=== PATIENT | male | born 1980 | race Caucasian/White ===

== ENCOUNTER 2019-01-06 13:40 | Emergency (ER) | payer BC ==
[2019-01-06] MEDS ORDERED: TETRACAINE HCL 0.5% 4ML OPTH ONE (14:09)
[2019-01-06] MEDS ORDERED: FLUORESCEIN SODIUM 1 MG/WRAP ONE (14:09)
--- NOTE | 2019-01-06 14:49 | ER ---
Nurse's Notes [facility] Name: Sandro Zhang Age: 38 yrs Sex: Male : 1980 Arrival Date: 01/06/2019 Time: 13:43 Bed 14 Private MD: Unknown, Unknown Diagnosis: Conjunctivitis-left eye Presentation: 01/06 13:55 Presenting complaint: Patient states: "I have had an eye infection for like a week and ss a half now, and the eye doctor put me on antibiotics, but it's not getting better, and now my vision is blurry since today.". Transition of care: patient was not received from another setting of care. Onset of symptoms was December 27, 2018. Risk Assessment: Do you want to hurt yourself or someone else? Patient reports no desire to harm self or others. Initial Sepsis Screen: Does the patient meet any 2 criteria? No. Patient's initial sepsis screen is negative. Does the patient have a suspected source of infection? No. Patient's initial sepsis screen is negative. Care prior to arrival: None. 13:55 Method Of Arrival: Ambulatory ss 13:55 Acuity: JACQUI 4 ss Triage Assessment: 13:55 Pain: Complains of pain in left eye Pain currently is 6 out of 10 on a pain scale. rb1 14:50 Pain: Complains of pain in left eye Pain began 5 days ago. mg2 Historical: - Allergies: 13:56 No Known Allergies; ss - PSHx: 13:56 None; ss - Immunization history:: Adult Immunizations up to date. - Social history:: Smoking status: Patient/guardian denies using tobacco. - Ebola Screening: : Patient denies exposure to infectious person Patient denies travel to an Ebola-affected area in the 21 days before illness onset. Screenin:55 Abuse screen: Denies threats or abuse. Nutritional screening: No deficits noted. rb1 Tuberculosis screening: No symptoms or risk factors identified. Fall Risk None identified. Assessment: 13:55 General: Appears in no apparent distress. comfortable, Behavior is calm, cooperative. rb1 General: Pt. reports being treated for an eye infection but says that it is not getting any better.. Neuro: Level of Consciousness is awake, alert, obeys commands, Oriented to person, place, time, situation. Cardiovascular: Capillary refill < 3 seconds is brisk in bilateral fingers. Respiratory: Airway is patent Respiratory effort is even, unlabored, Respiratory pattern is regular, symmetrical. GI: No signs and/or symptoms were reported involving the gastrointestinal system. : No signs and/or symptoms were reported regarding the genitourinary system. EENT: Reports blurred vision. Derm: Skin is pink, warm \\T\\ dry. 14:52 Reassessment: Patient appears in no apparent distress at this time. Patient and/or rb1 family updated on plan of care and expected duration. Pain level reassessed. Patient is alert, oriented x 3, equal unlabored respirations, skin warm/dry/pink. After the drops were administered. Patient states symptoms have improved. Vital Signs: 13:56 BP 137 / 98; Pulse 87; Resp 16; Temp 97.5(TE); Pulse Ox 99% on R/A; Weight 95.25 kg; ss Height 5 ft. 11 in. (180.34 cm); Pain 6/10; 14:51 BP 131 / 81; Pulse 72; Resp 17; Pulse Ox 97% on R/A; rb1 13:56 Body Mass Index 29.29 (95.25 kg, 180.34 cm) ss Visual Acuity: 14:21 Left Eye Visual acuity 20/50, Pupil size 2 mm, Normal, React To Light, Reactive To mg2 Accomodation; Right Eye Visual acuity 20/30, Pupil size 2 mm, Normal, React To Light, Reactive To Accomodation; Without Lenses; ED Course: 13:43 Patient arrived in ED. ag5 13:43 Unknown, Unknown is Private Physician. ag5 13:52 [facility]. cp 13:52 José Menchaca MD is Attending Physician. cp 13:55 Patient has correct armband on for positive identification. Bed in low position. Call rb1 light in reach. Side rails up X 1. Pulse ox on. NIBP on. 13:56 Triage completed. ss 13:56 Arm band placed on right wrist. ss 14:33 Kimi Stewart, CHANEL is Primary Nurse. rb1 14:47 Joel Segura MD is Referral Physician. cp 14:49 Assist provider with eye exam. Patient did not have IV access during this emergency mg2 room visit. Administered Medications: 14:20 Drug: Tetracaine Drops 0.5 % 1 drops Route: Ophthalmic; Site: left eye; mg2 14:50 Follow up: Response: No adverse reaction mg2 Outcome: 14:48 Discharge ordered by . ayana 15:00 Discharged to home ambulatory. rb1 15:00 Condition: stable 15:00 Discharge instructions given to patient, Instructed on discharge instructions, follow up and referral plans. medication usage, Demonstrated understanding of instructions, follow-up care, medications, Prescriptions given X 1. 15:01 Patient left the ED. rb1 Signatures: Keke Wells RN RN ss Jean Velasquez, SUAD PA Kimi Whatley, RN RN rb1 Jarrod Lee RN RN mg2 Stevie Murray ag5
--- NOTE | 2019-01-06 14:49 | EDPHYS ---
Physician Documentation [facility] Name: Sandro Zhang Age: 38 yrs Sex: Male : 1980 Arrival Date: 01/06/2019 Time: 13:43 Bed 14 Private MD: Unknown, Unknown ED Physician José Menchaca HPI: 01/06 14:00 This 38 yrs old Male presents to ER via Ambulatory with complaints of Eye Problem. cp 14:00 The patient is experiencing matting or discharge, redness, to the left eye, caused by cp an unknown mechanism. 14:00 Onset: The symptoms/episode began/occurred 1 week(s) ago. Duration: the symptoms are cp continuous. Associated signs and symptoms: Pertinent negatives: ear ache, fever, headache, sinus pressure/congestion. Patient wears glasses. Patient reports he saw primary physician 5 days ago and was prescribed gentamycin eye drops and oral antibiotic. Redness has worsened. Historical: - Allergies: 13:56 No Known Allergies; ss - PSHx: 13:56 None; ss - Immunization history:: Adult Immunizations up to date. - Social history:: Smoking status: Patient/guardian denies using tobacco. - Ebola Screening: : Patient denies exposure to infectious person Patient denies travel to an Ebola-affected area in the 21 days before illness onset. ROS: 14:05 Eyes: Positive for blurry vision, discharge, redness, Negative for vision loss. cp 14:05 Constitutional: Negative for body aches, chills, fever. cp 14:05 ENT: Negative for drainage from ear(s), ear pain, sore throat, difficulty swallowing, difficulty handling secretions. 14:05 Skin: Negative for cellulitis, rash. 14:05 All other systems are negative. Exam: 14:30 Visual Acuity: I have reviewed the nursing documentation. cp 14:30 Head/Face: Normocephalic, atraumatic. cp 14:30 Constitutional: The patient appears in no acute distress, alert, awake, non-toxic, well developed, well nourished. 14:30 Eyes: Periorbital structures: appear normal, Pupils: equal, round, and reactive to light and accomodation, Extraocular movements: intact throughout, Conjunctiva: chemosis, that is mild, in left eye, injected, in the left eye, Corneas: abrasion, is not appreciated, foreign body, is not appreciated, a fluorescein strip employed to appreciate the findings, Anterior chamber: normal, no hyphema, Lids and lashes: appear normal, bilaterally, Visual maurice: are intact, Examination of the other eye reveals no obvious gross abnormality. 14:30 ENT: External ear(s): are unremarkable, Ear canal(s): are normal, clear, TM's: dullness, bilaterally, Nose: is normal, Mouth: is normal, Posterior pharynx: is normal, airway is patent, no erythema, no exudate. 14:30 Neck: Lymph nodes: no appreciated lymphadenopathy. 14:30 Skin: cellulitis, is not appreciated, no rash present. Vital Signs: 13:56 BP 137 / 98; Pulse 87; Resp 16; Temp 97.5(TE); Pulse Ox 99% on R/A; Weight 95.25 kg; ss Height 5 ft. 11 in. (180.34 cm); Pain 6/10; 14:51 BP 131 / 81; Pulse 72; Resp 17; Pulse Ox 97% on R/A; rb1 13:56 Body Mass Index 29.29 (95.25 kg, 180.34 cm) ss Visual Acuity: 14:21 Left Eye Visual acuity 20/50, Pupil size 2 mm, Normal, React To Light, Reactive To mg2 Accomodation; Right Eye Visual acuity 20/30, Pupil size 2 mm, Normal, React To Light, Reactive To Accomodation; Without Lenses; MDM: 13:56 Patient medically screened. cp 14:30 Differential diagnosis: Corneal abrasion of Corneal ulcer of Foreign body in Acute cp iritis of Ultraviolet keratitis in. 14:47 Data reviewed: vital signs, nurses notes, I have discussed the patient's cp presentation/case with the attending Emergency Department Physician; and as a result, I will discharge patient. 14:47 Counseling: I had a detailed discussion with the patient and/or guardian regarding: the cp historical points, exam findings, and any diagnostic results supporting the discharge/admit diagnosis, to return to the emergency department if symptoms worsen or persist or if there are any questions or concerns that arise at home. 14:47 Response to treatment: the patient's symptoms have mildly improved after treatment, and cp as a result, I will discharge patient. 01/06 14:01 Order name: Visual Acuity; Complete Time: 14:20 cp 01/06 14:01 Order name: Eye Tray; Complete Time: 14:20 cp 01/06 14:01 Order name: Fluoresene Opth strip; Complete Time: 14:21 cp Administered Medications: 14:20 Drug: Tetracaine Drops 0.5 % 1 drops Route: Ophthalmic; Site: left eye; mg2 14:50 Follow up: Response: No adverse reaction mg2 Disposition: 15:05 Chart complete. cp 15:39 Co-signature as Attending Physician, José Menchaca MD. Disposition: 01/06/19 14:48 Discharged to Home. Impression: Conjunctivitis - left eye. - Condition is Stable. - Discharge Instructions: Bacterial Conjunctivitis. - Prescriptions for Ocuflox 0.3 % Ophthalmic Drops - instill 2 drops by OPHTHALMIC route every 6 hours for 7 days instill drops in left eye as directed; 5 milliliter. - Medication Reconciliation Form, Thank You Letter, Antibiotic Education, Prescription Opioid Use form. - Follow up: Joel Segura MD; When: 1 - 2 days; Reason: Recheck today's complaints. - Problem is new. - Symptoms have improved. Signatures: Keke Wells RN RN ss Jean Velasquez PA PA cp Kimi Stewart RN RN rb1 José Menchaca MD MD Jarrod Lee RN RN mg2 Corrections: (The following items were deleted from the chart) 15:01 14:48 01/06/2019 14:48 Discharged to Home. Impression: Conjunctivitis - left eye. rb1 Condition is Stable. Forms are Medication Reconciliation Form, Thank You Letter, Antibiotic Education, Prescription Opioid Use. Follow up: Joel Segura; When: 1 - 2 days; Reason: Recheck today's complaints. Problem is new. Symptoms have improved. cp
[2019-01-06 15:32] VITALS: TEMP 97.5
[2019-01-06 15:33] VITALS: BP 131/81; O2SAT 97
== END 2019-01-06 15:01 | disposition home or self-care (01) ==
LOC: ER 13:40
DX: H10.9 Unspecified conjunctivitis (principal)
CPT/HCPCS: 99284

== ENCOUNTER 2019-05-28 17:00 | Emergency (ER) | payer BC ==
[2019-05-28] MEDS ORDERED: ASPIRIN 81 MG CHEWABLE TABLET ONE (18:40)
[2019-05-28] MEDS ORDERED: NA CHLORIDE 0.9% 1,000 ML ONE (18:40)
[2019-05-28 18:43] LABS: Absolute Lymphocytes (CBC) 3.1 K/uL (0.7-4.9); Basophils % 0.8 % (0-1.3); Hematocrit 40.2 % (39.6-49.0); Lymphocytes % 37.3 % (15.3-44.8); MPV 8.6 fL (7.6-11.3); RBC Red Blood Cell Count 4.86 M/uL (4.33-5.43)
[2019-05-28 18:58] LABS: Protime INR 1.12
[2019-05-28 19:07] LABS: ALT/SGPT 37 U/L (12-78); AST/SGOT 30 U/L (15-37); Albumin 3.6 g/dL (3.4-5.0); Alkaline Phosphatase 106 U/L (45-117); BUN Blood Urea Nitrogen 12 mg/dL (7-18); Bicarbonate 28 mmol/L (21-32); Bilirubin Direct 0.1 mg/dL (0-0.2); Bilirubin Total 0.3 mg/dL (0.2-1.0); Glucose Level 93 mg/dL (74-106); Magnesium 2.2 mg/dL (1.8-2.4); Potassium 4.1 mmol/L (3.5-5.1); Sodium Level 140 mmol/L (136-145); Troponin (Emerg Dept Use Only) < 0.02 ng/mL (0.0-0.045)
[2019-05-28 19:19] LABS: NT PRO-BNP < 5 pg/mL (<125)
--- NOTE | 2019-05-28 19:32 | ER ---
Nurse's Notes [facility] Name: Sandro Zhang Age: 38 yrs Sex: Male : 1980 Arrival Date: 05/28/2019 Time: 17:02 Bed 28 Private MD: Diagnosis: Other chest pain;Edema, unspecified;Headache Presentation: 05/27 17:12 Chief complaint: Patient states: Intermittent CP and headache that began 1 week ago, is ss worse today. Coronavirus screen: The patient has NOT traveled to a country currently being monitored by the [facility] within the last 14 days. Proceed with normal triage procedures. Ebola Screen: Patient denies exposure to infectious person. Patient denies travel to an Ebola-affected area in the 21 days before illness onset. Initial Sepsis Screen: Does the patient meet any 2 criteria? No. Patient's initial sepsis screen is negative. Does the patient have a suspected source of infection? No. Patient's initial sepsis screen is negative. Risk Assessment: Do you want to hurt yourself or someone else? Patient reports no desire to harm self or others. 17:12 Method Of Arrival: Ambulatory ss 17:12 Acuity: JACQUI 3 ss 17:30 Onset of symptoms is unknown. jd3 Triage Assessment: 17:15 General: Appears in no apparent distress. Behavior is calm, cooperative, appropriate wh for age. Historical: - Allergies: 17:14 No Known Allergies; ss - Home Meds: 17:14 None [Active]; ss - PMHx: 17:14 None; ss - PSHx: 17:14 None; ss - Immunization history:: Adult Immunizations up to date. - Social history:: Smoking status: Patient denies any tobacco usage or history of. - Family history:: not pertinent. Screenin:15 Abuse screen: Denies threats or abuse. Denies injuries from another. Nutritional wh screening: No deficits noted. Tuberculosis screening: No symptoms or risk factors identified. Fall Risk None identified. Assessment: 17:15 General: Appears in no apparent distress. Behavior is calm, cooperative, appropriate wh for age. Pain: Complains of pain in chest pain Pain does not radiate. Pain currently is 5 out of 10 on a pain scale. Quality of pain is described as sharp, Pain began a week ago. Neuro: Level of Consciousness is awake, alert, obeys commands, Oriented to person, place, time, situation, Appropriate for age Reports headache. Cardiovascular: Reports chest pain, Heart tones S1 S2 Rhythm is regular. Respiratory: Airway is patent Respiratory effort is even, unlabored, Respiratory pattern is regular, symmetrical, Breath sounds are clear bilaterally. GI: Abdomen is flat, non-distended. : No signs and/or symptoms were reported regarding the genitourinary system. EENT: No signs and/or symptoms were reported regarding the EENT system. Derm: Skin is intact, is healthy with good turgor, Skin is pink, warm \T\ dry. normal. Musculoskeletal: Circulation, motion, and sensation intact. 18:25 Reassessment: Patient appears in no apparent distress at this time. No changes from previously documented assessment. Patient and/or family updated on plan of care and expected duration. Pain level reassessed. Patient is alert, oriented x 3, equal unlabored respirations, skin warm/dry/pink. 19:32 Reassessment: Patient appears in no apparent distress at this time. No changes from previously documented assessment. Patient and/or family updated on plan of care and expected duration. Pain level reassessed. Patient is alert, oriented x 3, equal unlabored respirations, skin warm/dry/pink. Vital Signs: 17:12 BP 140 / 90; Pulse 83; Resp 18; Temp 98.1(TE); Pulse Ox 96% on R/A; Weight 113.4 kg; Height 5 ft. 11 in. (180.34 cm); Pain 7/10; 18:30 BP 117 / 67; Pulse 75; Resp 18; Pulse Ox 99% on R/A; jd3 19:30 BP 120 / 61; Pulse 74; Resp 18; Pulse Ox 99% on R/A; jd3 17:12 Body Mass Index 34.87 (113.40 kg, 180.34 cm) ED Course: 17:02 Patient arrived in ED. rg4 17:07 Jean Beckman MD is Attending Physician. [facility] 17:11 Sabine Tucker is Primary Nurse. wh 17:13 Triage completed. ss 17:14 Arm band placed on right wrist. ss 17:25 Patient has correct armband on for positive identification. Placed in gown. Bed in low wh position. Call light in reach. Side rails up X 1. hospital monitor on. Pulse ox on. NIBP on. 17:25 Inserted saline lock: 20 gauge in left antecubital area, using aseptic technique. Blood wh collected. Patient maintains SpO2 saturation greater than 95% on room air. 18:15 XRAY Chest (1 view) In Process Unspecified. EDMS 18:40 US Extremity Venous W Compression Demarcus In Process Unspecified. EDMS 19:06 CT Head Brain wo Cont In Process Unspecified. EDMS 19:32 Devonte Arciniega MD is Referral Physician. [facility] 19:38 No provider procedures requiring assistance completed. IV discontinued, intact, jd3 bleeding controlled, No redness/swelling at site. Administered Medications: 18:33 Drug: Aspirin 162 mg Route: PO; 19:37 Follow up: Response: No adverse reaction jd3 18:34 Drug: NS 0.9% 1000 ml Route: IV; Rate: 125 ml/hr; Site: left antecubital; 19:38 Follow up: Response: No adverse reaction; IV Status: Order to discontinue infusion jd3 Outcome: 19:32 Discharge ordered by . [facility] 19:38 Discharged to home ambulatory. jd3 19:38 Condition: stable 19:38 Discharge instructions given to patient, Instructed on discharge instructions, follow up and referral plans. POC Demonstrated understanding of instructions, follow-up care, POC 19:39 Patient left the ED. jd3 Signatures: Dispatcher [employer] Jean Rinaldi MD MD cha Smirch, Shelby, RN RN Maty Garcia rg4 Sabine Tucker Jonathon RN RN jd3 Corrections: (The following items were deleted from the chart) 19:47 17:30 hospital monitor on. Pulse ox on. NIBP on. jd3 19:47 17:30 Patient has correct armband on for positive identification. Placed in gown. Bed wh in low position. Call light in reach. Side rails up X 1. j 19:47 18:30 Reassessment: Patient appears in no apparent distress at this time. No changes wh from previously documented assessment. Patient and/or family updated on plan of care and expected duration. Pain level reassessed. Patient is alert, oriented x 3, equal unlabored respirations, skin warm/dry/pink. j 19:48 19:30 Reassessment: Patient appears in no apparent distress at this time. No changes wh from previously documented assessment. Patient and/or family updated on plan of care and expected duration. Pain level reassessed. Patient is alert, oriented x 3, equal unlabored respirations, skin warm/dry/pink. [facility] 17:20 General: Appears in no apparent distress. Behavior is calm, cooperative, wh appropriate for age, [facility] 17:20 Pain: Complains of pain in chest pain Pain does not radiate. Pain currently is 5 wh out of 10 on a pain scale. Quality of pain is described as sharp, Pain began a week ago [facility] 17:20 Neuro: Level of Consciousness is awake, alert, obeys commands, Oriented to wh person, place, time, situation, Appropriate for age Reports headache [facility] 17:20 Cardiovascular: Reports chest pain, Heart tones S1 S2 Rhythm is regular [facility] 17:20 Respiratory: Airway is patent Respiratory effort is even, unlabored, Respiratory wh pattern is regular, symmetrical, Breath sounds are clear bilaterally. [facility] 17:20 GI: Abdomen is flat, non-distended, [facility] 17:20 : No signs and/or symptoms were reported regarding the genitourinary system. [facility] 17:20 EENT: No signs and/or symptoms were reported regarding the EENT system. [facility] 17:20 Derm: Skin is intact, is healthy with good turgor, Skin is pink, warm \T\ dry. wh normal, [facility] 17:20 Musculoskeletal: Circulation, motion, and sensation intact. [facility] 17:30 Patient maintains SpO2 saturation greater than 95% on room air. [facility] 17:30 Inserted saline lock: 20 gauge in left antecubital area, using aseptic technique. Blood collected. [facility] 17:30 Abuse screen: Denies threats or abuse. Denies injuries from another. [facility] 17:30 Nutritional screening: No deficits noted. [facility] 17:30 Tuberculosis screening: No symptoms or risk factors identified. [facility] 17:30 Fall Risk None identified. [facility]
--- NOTE | 2019-05-28 19:33 | EDPHYS ---
Physician Documentation [facility] Name: Sandro Zhang Age: 38 yrs Sex: Male : 1980 Arrival Date: 05/28/2019 Time: 17:02 Bed 28 Private MD: JESSI Physician Jean Beckman HPI: 05/27 17:48 This 38 yrs old Male presents to ER via Ambulatory with complaints of Chest iris Pain, Headache. 17:48 The patient or guardian reports chest pain that is located primarily in the anterior iris chest wall, left. The pain does not radiate. Associated signs and symptoms: The patient has no apparent associated signs or symptoms. The chest pain is described as a pressure. Modifying factors: The symptoms are alleviated by nothing. the symptoms are aggravated by nothing. Severity of pain: At its worst the pain was mild in the emergency department the pain is unchanged. The patient has not experienced similar symptoms in the past. Historical: - Allergies: 17:14 No Known Allergies; ss - Home Meds: 17:14 None [Active]; ss - PMHx: 17:14 None; ss - PSHx: 17:14 None; ss - Immunization history:: Adult Immunizations up to date. - Social history:: Smoking status: Patient denies any tobacco usage or history of. - Family history:: not pertinent. ROS: 17:48 Constitutional: Negative for fever, chills, and weight loss, Eyes: Negative for injury, iris pain, redness, and discharge, ENT: Negative for injury, pain, and discharge, Neck: Negative for injury, pain, and swelling, Respiratory: Negative for shortness of breath, cough, wheezing, and pleuritic chest pain, Abdomen/GI: Negative for abdominal pain, nausea, vomiting, diarrhea, and constipation, Back: Negative for injury and pain, : Negative for injury, bleeding, discharge, and swelling, Skin: Negative for injury, rash, and discoloration, Psych: Negative for depression, anxiety, suicide ideation, homicidal ideation, and hallucinations, Allergy/Immunology: Negative for hives, rash, and allergies, Endocrine: Negative for neck swelling, polydipsia, polyuria, polyphagia, and marked weight changes, Hematologic/Lymphatic: Negative for swollen nodes, abnormal bleeding, and unusual bruising. 17:48 Cardiovascular: Positive for chest pain. 17:48 : Positive for 17:48 MS/extremity: Positive for tenderness, of the right leg and left leg. Exam: 17:48 Constitutional: This is a well developed, well nourished patient who is awake, alert, iris and in no acute distress. Head/Face: Normocephalic, atraumatic. Eyes: Pupils equal round and reactive to light, extra-ocular motions intact. Lids and lashes normal. Conjunctiva and sclera are non-icteric and not injected. Cornea within normal limits. Periorbital areas with no swelling, redness, or edema. ENT: Nares patent. No nasal discharge, no septal abnormalities noted. Tympanic membranes are normal and external auditory canals are clear. Oropharynx with no redness, swelling, or masses, exudates, or evidence of obstruction, uvula midline. Mucous membranes moist. Neck: Trachea midline, no thyromegaly or masses palpated, and no cervical lymphadenopathy. Supple, full range of motion without nuchal rigidity, or vertebral point tenderness. No Meningismus. Chest/axilla: Normal chest wall appearance and motion. Nontender with no deformity. No lesions are appreciated. Cardiovascular: Regular rate and rhythm with a normal S1 and S2. No gallops, murmurs, or rubs. Normal PMI, no JVD. No pulse deficits. Respiratory: Lungs have equal breath sounds bilaterally, clear to auscultation and percussion. No rales, rhonchi or wheezes noted. No increased work of breathing, no retractions or nasal flaring. Abdomen/GI: Soft, non-tender, with normal bowel sounds. No distension or tympany. No guarding or rebound. No evidence of tenderness throughout. Back: No spinal tenderness. No costovertebral tenderness. Full range of motion. Male : Normal genitalia with no discharge or lesions. Skin: Warm, dry with normal turgor. Normal color with no rashes, no lesions, and no evidence of cellulitis. Neuro: Awake and alert, GCS 15, oriented to person, place, time, and situation. Cranial nerves II-XII grossly intact. Motor strength 5/5 in all extremities. Sensory grossly intact. Cerebellar exam normal. Normal gait. Psych: Awake, alert, with orientation to person, place and time. Behavior, mood, and affect are within normal limits. 17:48 Musculoskeletal/extremity: DVT Exam: no pain, no tenderness, negative Homans' sign noted on exam, no appreciated bluish discoloration, no erythema, no increased warmth, swelling. Vital Signs: 17:12 BP 140 / 90; Pulse 83; Resp 18; Temp 98.1(TE); Pulse Ox 96% on R/A; Weight 113.4 kg; ss Height 5 ft. 11 in. (180.34 cm); Pain 7/10; 18:30 BP 117 / 67; Pulse 75; Resp 18; Pulse Ox 99% on R/A; jd3 19:30 BP 120 / 61; Pulse 74; Resp 18; Pulse Ox 99% on R/A; jd3 17:12 Body Mass Index 34.87 (113.40 kg, 180.34 cm) ss MDM: 17:07 Patient medically screened. [facility] 17:48 Data reviewed: vital signs, nurses notes, lab test result(s), EKG, radiologic studies, [facility] CT scan, plain films. 05/27 17:48 Order name: Basic Metabolic Panel; Complete Time: 19:28 [facility] 05/27 17:48 Order name: CBC with Diff; Complete Time: 18:52 [facility] 05/27 17:48 Order name: LFT's; Complete Time: 19:28 [facility] 05/27 17:48 Order name: Magnesium; Complete Time: 19:28 [facility] 05/27 17:48 Order name: NT PRO-BNP; Complete Time: 19:28 [facility] 05/27 17:48 Order name: PT-INR; Complete Time: 19:12 [facility] 05/27 17:48 Order name: Troponin (emerg Dept Use Only); Complete Time: 19:28 [facility] 05/27 17:48 Order name: XRAY Chest (1 view) [facility] 05/27 17:48 Order name: EKG; Complete Time: 17:50 [facility] 05/27 17:48 Order name: Cardiac monitoring; Complete Time: 18:33 [facility] 05/27 17:48 Order name: CT Head Brain wo Cont [facility] 05/27 17:51 Order name: US Extremity Venous W Compression Demarcus iris 05/27 17:48 Order name: EKG - Nurse/Tech; Complete Time: 18:33 [facility] 05/27 17:48 Order name: IV Saline Lock; Complete Time: 18:33 [facility] 05/27 17:48 Order name: Labs collected and sent; Complete Time: 18:33 [facility] 05/27 17:48 Order name: O2 Per Protocol; Complete Time: 18:33 [facility] 05/27 17:48 Order name: O2 Sat Monitoring; Complete Time: 18:33 [facility] 05/27 17:48 Order name: Urine Dipstick-Ancillary (obtain specimen); Complete Time: 19:32 [facility] Administered Medications: 18:33 Drug: Aspirin 162 mg Route: PO; 19:37 Follow up: Response: No adverse reaction jd3 18:34 Drug: NS 0.9% 1000 ml Route: IV; Rate: 125 ml/hr; Site: left antecubital; 19:38 Follow up: Response: No adverse reaction; IV Status: Order to discontinue infusion jd3 Disposition: 05/28/19 19:32 Discharged to Home. Impression: Other chest pain, Edema, unspecified, Headache. - Condition is Stable. - Discharge Instructions: Nonspecific Chest Pain, Edema, General Headache Without Cause, Hypertension, Hypertension, [id number], Edema, [id number], Aspirin and Your Heart, General Headache Without Cause, [id number], Peripheral Edema. - Medication Reconciliation Form, Thank You Letter, Antibiotic Education, Prescription Opioid Use form. - Follow up: Private Physician; When: 2 - 3 days; Reason: Recheck today's complaints, Continuance of care, Re-evaluation by your physician. Follow up: Devonte Arciniega MD; When: 2 - 3 days; Reason: Recheck today's complaints, Continuance of care, Re-evaluation by your physician. - Problem is new. - Symptoms have improved. Signatures: Dispatcher [employer] [facility] Jean Beckman MD MD cha Smirch, Shelby, RN RN Sabine Rees Jonathon, RN RN jd3 Corrections: (The following items were deleted from the chart) 19:39 19:32 05/28/2019 19:32 Discharged to Home. Impression: Other chest pain; Edema, jd3 unspecified; Headache. Condition is Stable. Forms are Medication Reconciliation Form, Thank You Letter, Antibiotic Education, Prescription Opioid Use. Follow up: Private Physician; When: 2 - 3 days; Reason: Recheck today's complaints, Continuance of care, Re-evaluation by your physician. Follow up: Devonte Arciniega; When: 2 - 3 days; Reason: Recheck today's complaints, Continuance of care, Re-evaluation by your physician. Problem is new. Symptoms have improved. iris
[2019-05-28 19:44] VITALS: TEMP 98.1
[2019-05-28 19:46] VITALS: O2SAT 99
[2019-05-28 19:47] VITALS: BP 120/61
--- NOTE | 2019-05-29 09:30 | RAD REPORT ---
EXAM DESCRIPTION: RAD Chest Single View 05/28/2019 CLINICAL HISTORY: Chest pain. COMPARISON: None. FINDINGS: The lungs appear clear of acute infiltrate. The heart is normal in size.
--- NOTE | 2019-05-29 10:37 | RAD REPORT ---
EXAM DESCRIPTION: US extremity Venous W/Compress Demarcus 05/28/2019 CLINICAL HISTORY: Leg pain COMPARISON: None. TECHNIQUE: Ultrasound bilateral Leg FINDINGS: Femoral, superficial femoral, popliteal and posterior tibial veins bilaterally are compressible and demonstrating augmentation. IMPRESSION: Negative exam.
--- NOTE | 2019-05-29 12:06 | RAD REPORT ---
EXAM DESCRIPTION: CT Head W/O Contrast 05/28/2019 CLINICAL HISTORY: Headache. COMPARISON: None. TECHNIQUE: Unenhanced computed axial tomography of the head was obtained. This exam was performed according to our departmental dose-optimization program, which includes automated exposure control, adjustment of the mA and/or kV according to patient size and/or use of iterative reconstruction technique. FINDINGS: An intracranial bleed is not seen. The ventricles are normal in caliber. No extra axial fluid collection. Fluid within the sinuses/mastoids is not seen. IMPRESSION: 1. Unremarkable unenhanced head CT. 2. If the patients symptoms persist MRI of the brain would be recommended.
--- NOTE | 2019-05-29 12:14 | EKG ---
Test Date: 2019-05-28 Test Time: 17:14:31 Classified Advertising Supervisor: KATHI MEASUREMENT RESULTS: Intervals: Rate: 80 OK: 172 QRSD: 92 QT: 364 QTc: 419 [place]: P: 41 OK: 172 QRS: 33 T: 57 INTERPRETIVE STATEMENTS: Normal sinus rhythm Normal ECG No previous ECG available for comparison Electronically Signed On 05-29-19 12:13:28 CDT by Devonte Arciniega
== END 2019-05-28 19:39 | disposition home or self-care (01) ==
LOC: ER 17:00
DX: R07.89 Other chest pain (principal); R60.9 Edema, unspecified; R51 Headache
CPT/HCPCS: 93005; 85025; 80048; 36415; 83735; 85610; 80076; 84484; 83880; 70450; 71045; 93970; 96360; 99285; J7030